=== PATIENT | female | born 1975 | race Caucasian/White ===

== ENCOUNTER 2018-01-04 17:55 | Emergency (ER) | payer OTHER ==
[~2018-01-04] VITALS: Ht 162.6 cm; Wt 100.2 kg
[2018-01-04 18:01] VITALS: BP 144/102
[2018-01-04] MEDS ORDERED: CYMBALTA60 MG PO (18:07)
[2018-01-04] MEDS ORDERED: WELLBUTRIN SR150 MG PO (18:07)
[2018-01-04] MEDS ORDERED: MULTIVITAMINS1 EAC7 PO (18:08)
[2018-01-04] MEDS ORDERED: CLARITIN10 MG PO (18:08)
[2018-01-04] MEDS ORDERED: PROMS25 WY RECTAL (18:08)
[2018-01-04] MEDS ORDERED: TESSALON PERLE100 MG PO (18:08)
[2018-01-04] MEDS ORDERED: VENTOLIN HFA INH8 GM INH (18:09)
[2018-01-04] MEDS ORDERED: LEVAQUIN 500 M500 M3 PO (18:09)
[2018-01-04 19:28] LABS: ABSOLUTE EOSINOPHILS 0.2 thou/uL (0.0-0.7); ABSOLUTE LYMPHOCYTES 1.1 thou/uL (0.8-5.3); ABSOLUTE MONOCYTES 0.7 thou/uL (0.0-1.2); ABSOLUTE NEUTROPHILS 5.4 thou/uL (1.6-8.1); BASOPHILS 0.5 %; EOSINOPHILS 2.5 %; HEMATOCRIT 41.8 % (37.0-47.0); HEMOGLOBIN 13.6 gm/dL (12.0-15.0); LYMPHOCYTES 15.5 %; MCH 27.6 pg (26.0-34.0); MCHC 32.6 g/dL (28.0-37.0); MCV 84.5 fL (80.0-100.0); MONOCYTES 9.2 %; MPV 8.3 fl. (7.2-11.1); NUCLEATED RBCS 0 /100WBC; PLATELET COUNT* 380 thou/uL (150-400); POLYS 72.3 %; RBC 4.95 mil/uL (4.20-5.00); RDW-CV 13.4 % (10.5-14.5); WBC 7.4 thou/uL (4.0-11.0)
[2018-01-04 19:34] LABS: CALCIUM 8.4 mg/dL (8.5-10.1); CREATININE 0.9 mg/dL (0.6-1.3); POTASSIUM 4.1 mmol/L (3.5-5.1)
[2018-01-04 19:36] LABS: INFLUENZA A ANTIGEN None Detected (None Detect); INFLUENZA B ANTIGEN None Detected (None Detect)
[2018-01-04 19:45] LABS: ALBUMIN 3.2 g/dL (3.4-5.0); TOTAL BILIRUBIN 0.2 mg/dL (<0.1-1.0); TOTAL PROTEIN 7.5 g/dL (6.4-8.2)
[2018-01-04] MEDS ORDERED: PREDNISONE 20 M20 M1 PO (19:50)
[2018-01-04] MEDS ORDERED: VENTOLIN HFA 1818 GM INH (19:50)
[2018-01-04] MEDS ORDERED: ZPAK PO (19:50)
[2018-01-04] MEDS ORDERED: LEVAQUIN 500 M500 MG PO (19:55)
[2018-01-04] MEDS ORDERED: TUSSIONEX PENN115 ML PO (19:59)
[2018-01-04 20:41] VITALS: BP 143/88
== END 2018-01-04 20:05 | disposition home or self-care (01) ==
LOC: M.ERS 17:55 → M.TBA-ER 19:57 → M.ERS 20:05
PROVIDERS: Family Medicine
DX: J18.9 Pneumonia, unspecified organism (principal); F41.9 Anxiety disorder, unspecified; F32.9 Major depressive disorder, single episode, unspecified; F17.200 Nicotine dependence, unspecified, uncomplicated; Z88.5 Allergy status to narcotic agent; Z88.0 Allergy status to penicillin